=== PATIENT | male | born 1955 | race Caucasian/White ===

== ENCOUNTER → 2023-10-03 13:51 | Outpatient (CLI) | payer OTHER, SELFPAY ==
--- NOTE | 2023-10-03 13:53 | DI.MRI.S_ITS ---
PROCEDURE: MR ANGIO HEAD WO CON INDICATIONS: Cerebral infarction, unspecified TECHNIQUE: Noncontrast axial 3-D [id number] MR angiogram, with 3-dimensional maximum intensity projection (MIP) reformats of the internal carotid arteries and posterior circulation then performed. COMPARISON: [facility], , MR ANGIO NECK W CON, 10/03/2023, 14:53. FINDINGS: Image quality: Excellent. Anterior circulation: Intracranial internal carotid arteries demonstrate normal size and intraluminal flow signal. The flow within the paired anterior cerebral arteries is normal and symmetric. The flow within the middle cerebral arteries is normal and symmetric. The anterior communicating artery is seen. No stenoses, occlusions, or aneurysms. Posterior circulation: Visualized portions of the vertebral arteries demonstrate normal caliber, and join to form a normal appearing basilar artery. The flow within the posterior cerebral arteries is normal and symmetric. No stenoses, occlusions, or aneurysms. IMPRESSION: No significant intracranial arterial abnormality is seen. Dictated by: Nicholas Ramsey M.D. on 10/03/2023 at 15:05 Approved by: Nicholas Ramsey M.D. on 10/03/2023 at 15:06
--- NOTE | 2023-10-03 13:54 | DI.MRI.S_ITS ---
PROCEDURE: MR ANGIO NECK W CON INDICATIONS: Cerebral infarction, unspecified TECHNIQUE: Axial and sagittal TruFISP through the neck. Coronal dynamic MRA after the administration of contrast in the arterial and venous phases, with rotating 3-dimensional maximum intensity projection (MIP) reformats constructed from subtraction images. COMPARISON: [facility], , MR ANGIO HEAD WO CON, 10/03/2023, 14:53. FINDINGS: Image quality: Excellent. Carotid system: Great vessels demonstrate a conventional anatomy as they arise from the aortic arch. The origins of the common carotid arteries appear normal. The calibers and courses of the common carotid arteries are likewise normal. The carotid bifurcations appear normal bilaterally. The internal carotid arteries are widely patent up to the [place]. Posterior circulation: The origins of the vertebral arteries are unremarkable. The more superior portions of the vertebral arteries demonstrate normal course and caliber. Vertebral arteries join to form a normal appearing basilar artery. Miscellaneous: Subclavian arteries are patent throughout. Pre-contrast images through the neck demonstrate no soft tissue abnormalities. IMPRESSION: Within the arteries of the neck, no hemodynamically significant stenosis can be seen. Any quantitative measurements of stenosis were performed using NASCET criteria. Dictated by: Nicholas Ramsey M.D. on 10/03/2023 at 15:04 Approved by: Nicholas Ramsey M.D. on 10/03/2023 at 15:05
--- NOTE | 2023-10-03 14:18 | DI.ECHO.S_ITS ---
[facility]+ [facility] +---------+ : : [address] : : : : [id number] : : : : Phone: [phone]+ Echocardiogram Report + + :Name: GAGANDEEP GAMBINO Study Date: 10/03/2023 Height: 70 in : :[facility] ReadingLocation: Weight: 180 lb : : Gender: Male BSA: 2.0 m2 : :: 1955 Age: 68 yrs BP: 127/82 mmHg: :Reason For Study: CEREBRAL INFARCTION : :Ordering Physician: TAMIA, : :BRUNA Performed By: Pedro Frank : :Referring: BRUNA CANTRELL : + + Interpretation Summary Normal left ventricle size with ejection fraction 60-65%. Moderate aortic valve sclerosis. Injection of contrast documented an interatrial shunt. Procedure: A two-dimensional transthoracic echocardiogram with color flow and Doppler was performed. A saline contrast injection was performed to assess for cardiac shunting. The study quality was technically adequate. There is no prior echocardiogram noted for this patient. The patient was in normal sinus rhythm during the exam. Left Ventricle: The left ventricle is normal in size and wall thickness. The ejection fraction is estimated to be 60-65%. There are no focal wall motion abnormalities. Right Ventricle: The right ventricle is normal in size and function. Atria: The left atrial size is normal. The right atrium is normal in size. Injection of contrast documented an interatrial shunt. Mitral Valve: The mitral valve is normal in structure and function. There is no mitral valve stenosis. There is trace mitral regurgitation. Aortic Valve: The aortic valve is trileaflet. There is moderate aortic valve sclerosis. There is no aortic valve stenosis. There is no aortic regurgitation. Tricuspid Valve: The tricuspid valve is normal. There is no tricuspid stenosis. No tricuspid regurgitation. Pulmonary artery pressures cannot be estimated because of the lack of a measurable TR jet velocity. Pulmonic Valve: The pulmonic valve is normal in structure and function. There is no pulmonic valvular stenosis. There is no pulmonic valvular regurgitation. Great Vessels: The aortic root is mildly dilated. The dimensions of the ascending aorta are normal. The inferior vena cava appeared normal. Pericardium/ Pleura There is no pericardial effusion. There is no pleural effusion. MMode/2D Measurements & Calculations LVIDd: 4.4 cm LVOT diam: 2.3 cm LVIDs: 3.1 cm Ao root diam: 4.1 cm FS: 29.1 % asc Aorta Diam: 3.4 cm IVSd: 1.2 cm LVPWd: 0.95 cm LV moore. diameter/BSA (cm/m^2): 2.2 LV sys. diameter/BSA (cm/m^2): 1.6 LA A2 area: 19.3 cm2 RA long axis: 4.7 cm LA A4 area: 16.3 cm2 RA area: 14.8 cm2 LA length (vol): 5.2 cm RA vol: 39.7 ml LA vol: 51.5 ml RA : 19.9 ml/m2 LA vol index: 25.8 ml/m2 IVC diam: 2.0 cm RVD1 (basal): 3.7 cm RVD2 (mid): 3.3 cm TAPSE: 1.4 cm Doppler Measurements & Calculations Ao V2 max: 216.7 cm/sec LVOT Max Jaren: 123.7 cm/sec Ao V2 mean: 151.4 cm/sec LV V1 max P.1 mmHg Ao max P.8 mmHg LV V1 VTI: 28.1 cm Ao mean P.5 mmHg STEVE(I,D): 2.6 cm2 Ao V2 VTI: 42.9 cm STEVE(V,D): 2.3 cm2 sev ratio: 0.65 STEVE indexed to BSA (cm^2/m^2): 1.3 MV E max jaren: 55.5 cm/sec PA pr(Accel): 36.2 mmHg MV A max jaren: 86.5 cm/sec MV E/A: 0.64 Med Peak E' Jaren: 6.9 cm/sec E/E' med: 8.0 Lat Peak E' Jaren: 8.4 cm/sec E/E' lat: 6.6 E/e' average: 7.3 MV dec time: 0.10 sec SV(LVOT): 112.7 ml Electronically signed by: Evangelina Bennett on Reading Physician:10/03/2023 04:44 PM
== END ==
LOC: ECHO 13:51
PROVIDERS: Family Provider Internal Medicine; PCP Internal Medicine; Referring Provider Internal Medicine; Visit Provider Internal Medicine
DX: I63.9 Cerebral infarction, unspecified (principal); I35.8 Other nonrheumatic aortic valve disorders; I77.810 Thoracic aortic ectasia
CPT/HCPCS: 70544; 70548; 93306; A9579

== ENCOUNTER → 2023-10-23 13:33 | Outpatient (CLI) | payer OTHER, SELFPAY ==
--- NOTE | 2023-10-23 13:36 | DI.MRI.S_ITS ---
PROCEDURE: MR HEAD/BRAIN WO CON INDICATIONS: cva TECHNIQUE: Non-contrast axial T1 spin echo, axial T2 fast spin echo, sagittal and axial FLAIR, coronal T2 fast spin echo, axial gradient echo, axial diffusion and ADC through the brain. COMPARISON: None. FINDINGS: Image quality: Excellent. CSF spaces: Ventricles appear symmetric in size and shape. Basal cisterns are patent. No extra-axial fluid collections. Brain: No intracranial bleeds or mass effects. There is cerebral volume loss for age. There are periventricular and deep white matter chronic small vessel ischemic changes. Brainstem appears normal. Diffusion-weighted images show no acute infarct. Small chronic right brooks radiata lacunar infarct with surrounding gliosis. Normal intravascular flow voids are present. Skull and face: Calvarial bone marrow is normal in signal. Orbits are normal. Sinuses: Mild mucosal thickening in the maxillary sinuses. The mastoids are clear. IMPRESSION: No acute intracranial disease process. No acute infarction or intracranial hemorrhage. Chronic right brooks radiata lacunar infarct. Mild, diffuse cerebral volume loss. Mild periventricular and subcortical white matter chronic microvascular ischemic change. Dictated by: Darlin Garcia MD, PhD on 10/24/2023 at 9:16 Approved by: Darlin Garcia MD, PhD on 10/24/2023 at 9:19
== END ==
LOC: MRI 13:34
PROVIDERS: Family Provider Internal Medicine; PCP Internal Medicine; Referring Provider Internal Medicine; Visit Provider Internal Medicine
DX: I63.9 Cerebral infarction, unspecified (principal)
CPT/HCPCS: 70551

== ENCOUNTER → 2024-01-24 11:04 | Outpatient (RCR) | payer MEDICARE, OTHER, SELFPAY ==
--- NOTE | 2022-11-22 17:42 | ST.OP.ACL ---
Visit Care Team Role Provider Type Genaro Cunha MD Attending Provider Non-Staff Family Provider Primary Care Provider Referring Provider Specialty: Internal Medicine Address: [address] [place], [place] [address], [place], [address] Email: Adult Cognitive Linguistic Evaluation [employer] Adult Cognitive Linguistic Eval Start: 11/22/22 16:19 Freq: Status: Active Protocol: Document 11/22/22 17:08 CG (Rec: 11/22/22 17:42 CG [id number]) Adult Cognitive Linguistic Evaluation Session Time Visit Start Time 15:30 Visit Stop Time 16:20 Total Visit Minutes 50 Visit Information Visit Number 1 Plan of Care Dates 11/22/22-01/21/23 Referral Referring Provider Genaro Cunha Reason for Referral CVA Setting Assessment Location Outpatient Care Visit Type Note Type Initial evaluation Next Note Type Next Note Type Treatment Note Patient Information Identification Type Name Patient History Pt is a 67-year-old man who is here for a speech/cognitive- linguistic evaluation after being hospitalized in September for a stroke. At the time of the event, he woke up in the morning with right sided facial droop and dysarthria, as well as vision changes. It was determined at the hospital that he likely had a left-sided lacunar infarct. During his inpatient stay, he continued to present with mild dysarthria and a left gaze palsy. At the time of evaluation, he reports no difficulty with speech. His reports that he seems to have delayed processing time and mumble more than before the stroke. The pt states his memory is okay and doesn't interfere with everyday life, though his has concerns. Language(s) Spoken in the Home [place]al[place] Education Level High school diploma Hearing Hearing Level Normal Vision Vision Status Impaired Comments Glasses, possible hemineglect Previous Therapy Previous Speech-Language Therapy No Subjective Patient Report Pt arrived on time with his , Kesha, who was present throughout the evaluation. He did not report any pain. He was alert, oriented, cooperative, and avle to follow directions throughout the assessment. Mental Status Alert,Responsive,Cooperative Assessment Oral Motor Examination Completed Yes Results Tongue: Deviates right. Mild weakness on L lingual press. Moderate decreased agility/ motor planning deficits observed during alternating tongue lateralization exercise . Lips: Moderately reduced labial coordination observed during smile-pucker exercise. Jaw: WFL Phonation time was mildly reduced during sustained /a/ task. Diadakokinetic task revealed mildly slowed DDK speed. Informal Assessment Receptive Language Normal No: Difficulty with multi-step commands Receptive Language Impairment(s) Comprehension of complex yes/ no questions,Following 2-step commands Expressive Language Normal Yes Pragmatic Language Normal Yes Speech Normal No Speech Impairment(s) Slow speech rate,Poor breath support Cognition Normal No Cognitive Impairment(s) Short-term memory,Problem solving Formal Assessment Standardized Test/Screener Type [facility] Mental Status ([facility]) Administration Complete Results (Indicative of mild dementia). Deficits included difficulty with working memory for mathematical calculation, deficits in short term memory for story task, and deficits in multi-step directions for clock drawing. Findings/Results Language Function Within functional limits Cognitive Function Mildly impaired Findings Pt presents with mild cognitive deficits as indicated above in results of the SLUMS. Pt states he is not able to remember to take his medications, though he never took any regular medications before his stroke. Pt's indicated that she has to remind him to take medications and to keep appointments, and that his memory has worsened since his stroke. Additionally, she states he has difficulty finding things within his visual field, though pt states this is only because he didn' t bring his glasses to the evaluation. Pt was observed to have difficulty finding words on his phone. Speech/language appear within functional limits. Though some mild symptoms of dysarthria are still present, they are not noticeable nor do they interfere with everyday speech per pt's report. Pt reported mild word-finding difficulties, though not enough to interfere with everyday life. Cognitive Communication Deficits Self-awareness of Cognitive- Situational awareness ( Communication Deficits recognition of problem in context;in real time) Concomitant Factors Concomitant Factors Visual field neglect Impact on Functioning Activity Limits/Particip.Rest. Mild: Interpersonal Interactions Community Safety Risks Mild: Being Left Alone at Home Mod: Managing Medication Traveling Alone in Community Prognosis Prognosis Fair Based on Other (comment) Comment Decreased insight Plan of Care Speech-Language Treatment Yes Frequency 1x/week Duration 4 weeks Patient/Caregiver Education Described results of evaluation,Patient expressed understanding of evaluation, Patient expressed agreement with goals and treatment plans ,Patient requires further education/training,Family/ caregivers require further education/training Short Term Goals 1. Pt and caregiver will benefit from education regarding the use of external aids and compensatory strategies for memory. 2. Pt will demonstrate understanding of and accurate execution of home exercise program for mild dysarthria. 3. Pt will complete visual scanning tasks with 70% accuracy independently. Punchboard Filling Machine Operator Goals 1. Pt will demonstrate use of compensatory strategies for memory as evidenced by recalling a list of 5 after a delay of 2 minutes. 2. Pt will demonstrate use of compensatory strategies for cognition by completing visual scanning tasks with 85% accuracy independently with the use of trained strategies. Discharge Recommendations Home
--- NOTE | 2022-11-22 17:42 | ST.OPPOC ---
Physical, Occupational & Speech Therapy At [facility] Visit Care Team Role Provider Type Genaro Cunha MD Attending Provider Non-Staff Family Provider Primary Care Provider Referring Provider Address: [address], [place], [address] Speech Pathology Plan of Care Plan of Care Dates 11/22/22-01/21/23 Referring Provider Genaro Cunha Patient History Pt is a 67-year-old man who is here for a speech /cognitive-linguistic evaluation after being hospitalized in September for a stroke. At the time of the event, he woke up in the morning with right sided facial droop and dysarthria, as well as vision changes. It was determined at the hospital that he likely had a left-sided lacunar infarct. During his inpatient stay, he continued to present with mild dysarthria and a left gaze palsy. At the time of evaluation, he reports no difficulty with speech. His reports that he seems to have delayed processing time and mumble more than before the stroke. The pt states his memory is okay and doesn't interfere with everyday life, though his has concerns. Self-awareness of Cognitive- Situational awareness (re Communication Deficits Interpersonal Interactions Mild Community Mild Being Left Alone at Home Mild Managing Medication Moderate Traveling Alone in Community Moderate Short Term Goals 1. Pt and caregiver will benefit from education regarding the use of external aids and compensatory strategies for memory. 2. Pt will demonstrate understanding of and accurate execution of home exercise program for mild dysarthria. 3. Pt will complete visual scanning tasks with 70% accuracy independently. Detention Goals 1. Pt will demonstrate use of compensatory strategies for memory as evidenced by recalling a list of 5 after a delay of 2 minutes. 2. Pt will demonstrate use of compensatory strategies for cognition by completing visual scanning tasks with 85% accuracy independently with the use of trained strategies. Comment: Electronically Signed by: SHANNA Wong 11/22/22 0814 If you are in agreement with this Plan of Care, please return a signed and dated copy. I have reviewed this Plan of Care and certify that the skilled therapy services above are required to meet the patient?s needs. Physician Signature Date Printed Name and Credentials Clinical Instructor Signature Printed Name and Credentials
--- NOTE | 2024-01-23 11:52 | ST.OPDS ---
Visit Care Team Role Provider Type Genaro Cunha MD Attending Provider Non-Staff Family Provider Primary Care Provider Referring Provider Address: [facility] [address], [place], [address] [employer] Discharge Summary [employer] Discharge Summary Start: 01/23/24 11:50 Freq: Status: Active Protocol: Document 01/23/24 11:50 CG (Rec: 01/23/24 11:52 CG [id number]) Speech Pathology Treatment Note Visit Information Plan of Care Dates 11/22/22-01/21/23 Setting Treatment Setting Outpatient Care Next Note Type Next Note Type NA General Information Patient History Pt is a 67-year-old man who is here for a speech/cognitive- linguistic evaluation after being hospitalized in September for a stroke. At the time of the event, he woke up in the morning with right sided facial droop and dysarthria, as well as vision changes. It was determined at the hospital that he likely had a left-sided lacunar infarct. During his inpatient stay, he continued to present with mild dysarthria and a left gaze palsy. At the time of evaluation, he reports no difficulty with speech. His reports that he seems to have delayed processing time and mumble more than before the stroke. The pt states his memory is okay and doesn't interfere with everyday life, though his has concerns. Objective Short Term Goals 1. Pt and caregiver will benefit from education regarding the use of external aids and compensatory strategies for memory. 2. Pt will demonstrate understanding of and accurate execution of home exercise program for mild dysarthria. 3. Pt will complete visual scanning tasks with 70% accuracy independently. Longterm Goals 1. Pt will demonstrate use of compensatory strategies for memory as evidenced by recalling a list of 5 after a delay of 2 minutes. 2. Pt will demonstrate use of compensatory strategies for cognition by completing visual scanning tasks with 85% accuracy independently with the use of trained strategies. Treatment Activities No treatment was initiated after initial evaluation due to pt not following up past initial eval. Discharging at this time due to inactivity of account. Assessment Assessment of Improvement Pt was not seen beyond initial evaluation. Discharge acct due to inactivity.
== END | disposition home or self-care (01) ==
LOC: SP 11-22 15:24
PROVIDERS: Absent Provider Internal Medicine; Family Provider Internal Medicine; PCP Internal Medicine; Referring Provider Internal Medicine; Visit Provider Internal Medicine
DX: I63.9 Cerebral infarction, unspecified (principal)
CPT/HCPCS: 92523

== ENCOUNTER → 2024-05-17 09:08 | Outpatient (CLI) | payer MEDICARE, SELFPAY ==
--- NOTE | 2024-05-17 09:09 | DI.MRI.S_ITS ---
PROCEDURE: MR HEAD/BRAIN WO CON INDICATIONS: CVA TECHNIQUE: Non-contrast axial T1 spin echo, axial T2 fast spin echo, sagittal and axial FLAIR, coronal T2 fast spin echo, axial gradient echo, axial diffusion and ADC through the brain. COMPARISON: [facility], , MR HEAD/BRAIN WO CON, 10/23/2023, 14:03. FINDINGS: Image quality: Excellent. CSF spaces: Ventricles appear symmetric in size and shape. Basal cisterns are patent. No extra-axial fluid collections. Brain: No intracranial bleeds or mass effects. There is a small chronic right mid brooks radiata infarct with moderate surrounding ill-defined FLAIR signal elevation, as before. There is cerebral volume loss for age. There are periventricular and deep white matter chronic small vessel ischemic changes. Brainstem appears normal. Diffusion-weighted images show no acute infarct. No chronic ischemic insults. Normal intravascular flow voids are present. Skull and face: Calvarial bone marrow is normal in signal. Orbits are normal. Sinuses: Complete opacification of the left maxillary sinus. Near complete opacification of the left frontal sinus. Moderate left and mild right ethmoid sinus mucosal thickening. Mastoids are clear. IMPRESSION: 1. No acute process. No recent infarct. 2. Volume loss and small vessel ischemic disease. 3. Small chronic right brooks radiata infarct. 4. Sinus disease. Dictated by: Bruno Franks M.D. on 05/17/2024 at 10:42 Approved by: Bruno Franks M.D. on 05/17/2024 at 10:48
== END ==
LOC: MRI 09:08
PROVIDERS: Family Provider Internal Medicine; PCP Internal Medicine; Referring Provider Internal Medicine; Visit Provider Internal Medicine
DX: I63.9 Cerebral infarction, unspecified (principal); J32.8 Other chronic sinusitis
CPT/HCPCS: 70551

== ENCOUNTER → 2025-01-15 07:49 | Outpatient (CLI) | payer MEDICARE, SELFPAY ==
--- NOTE | 2025-01-15 07:50 | DI.ECHO.S_ITS ---
[facility] : : [address] : [facility] : : [place], : : [place] [address] : : Phone: [phone] Echocardiogram Report + + :Name: GAGANDEEP GAMBINO Study Date: 01/15/2025 Height: 70 in : :[facility] ReadingLocation: Weight: 190 lb : : Gender: Male BSA: 2.0 m2 : :: 1955 Age: 69 yrs BP: 124/81 mmHg: :Reason For Study: HYPERTENSION, MURMUR : :Ordering Physician: JEANA, : :LORENA Performed By: Pedro Frank : :Referring: LORENA HILLS : + + Interpretation Summary Normal sinus rhythm. Normal LV size and wall thickness; EF is 50-55%. Stage I diastolic dysfunction. Normal chamber sizes. Aortic valve is a trileaflet structure with moderately reduced leaflet excursion and mild associated aortic stenosis. Peak velocity is 2 m/sec and mean gradient is 10 mm Hg. Mildly dilated aortic root measuring 4.1 cm in diameter. Compared to prior echo 10/03/2023 no significant changes have occurred. Procedure: A two-dimensional transthoracic echocardiogram with color flow and Doppler was performed. The study quality was technically good. Comparison is made with the echocardiogram of 10/03/2023. The patient was in normal sinus rhythm during the exam. Left Ventricle: The left ventricle is normal in size. There is normal left ventricular wall thickness. There is no ventricular septal defect visualized. The ejection fraction is estimated to be 50-55%. There are no focal wall motion abnormalities. Diastolic parameters suggest a relaxation abnormality of the left ventricle, consistent with probable normal filling pressures. Right Ventricle: The right ventricle is mildly dilated. Right ventricular systolic function is mildly reduced. Atria: The left atrial size is normal. Right atrial size is normal. The interatrial septum is not well visualized. HX POSITIVE BUBBLE STUDY. Mitral Valve: The mitral valve leaflets appear normal. There is no evidence of stenosis, fluttering, or prolapse. There is trace mitral regurgitation. Aortic Valve: The aortic valve is trileaflet. There is moderate aortic valve sclerosis. No aortic regurgitation is present. Tricuspid Valve: The tricuspid valve leaflets are thin and pliable. There is a trace or physiologic amount of tricuspid regurgitation. Pulmonic Valve: The pulmonic valve is normal in structure and function. There is no pulmonic valvular regurgitation. Great Vessels: The aortic root is mildly dilated. The dimensions of the ascending aorta are normal. The pulmonary artery is normal size. The inferior vena cava was not visualized. Pericardium/ Pleura There is no pericardial effusion. There is no pleural effusion. MMode/2D Measurements & Calculations LVIDd: 4.1 cm AoV Openin.4 cm LVIDs: 3.3 cm LVOT diam: 2.3 cm IVSd: 1.0 cm Ao root diam: 4.1 cm LVPWd: 1.0 cm asc Aorta Diam: 3.8 cm LV moore. diameter/BSA (cm/m^2): 2.0 LV sys. diameter/BSA (cm/m^2): 1.6 FS: 19.4 % EPSS: 0.83 cm LA A2 area: 21.9 cm2 RA long axis: 5.4 cm LA A4 area: 20.2 cm2 RA area: 17.3 cm2 LA length (vol): 5.5 cm RA vol: 46.9 ml LA vol: 67.8 ml RA : 23.0 ml/m2 LA vol index: 33.2 ml/m2 RVD1 (basal): 4.2 cm RVD2 (mid): 3.5 cm TAPSE: 2.0 cm Doppler Measurements & Calculations Ao V2 max: 208.9 cm/sec LVOT Max Jaren: 122.2 cm/sec Ao V2 mean: 152.5 cm/sec LV V1 max P.0 mmHg Ao V2 VTI: 48.2 cm LV V1 VTI: 26.3 cm Ao max P.5 mmHg Ao mean P.3 mmHg STEVE(I,D): 2.2 cm2 MV E max jaren: 47.3 cm/sec STEVE(V,D): 2.3 cm2 MV A max jaren: 63.3 cm/sec STEVE indexed to BSA (cm^2/m^2): 1.1 MV E/A: 0.75 sev ratio: 0.55 Med Peak E' Jaren: 6.7 cm/sec E/E' med: 7.1 Lat Peak E' Jaren: 7.4 cm/sec E/E' lat: 6.4 E/e' average: 6.7 MV dec time: 0.26 sec PA V2 max: 93.0 cm/sec PA V2 mean: 60.7 cm/sec PA mean P.7 mmHg PA pr(Accel): 39.6 mmHg SV(LVOT): 104.8 ml Electronically signed by: Jennifer Khoury M.D. on Reading Physician:01/16/2025 12:32 AM
--- NOTE | 2025-01-15 07:50 | DI.CT.S_ITS ---
PROCEDURE: CT LUNG LOW DOSE SCREENING INDICATIONS: tobacco use TECHNIQUE: Noncontrast 2.0-2.5 mm thick sections acquired from the pulmonary apices to the posterior costophrenic angles. 7 mm thick axial MIP, and 5 mm coronal and sagittal reformats were then acquired. For radiation dose reduction, the following was used: automated exposure control, adjustment of mA and/or kV according to patient size. COMPARISON: None. FINDINGS: Image quality: Diagnostic. Lower Neck: No enlarged lymph nodes. Thyroid: No thyroid nodules which require sonographic follow up, per consensus guidelines. Axillae: No enlarged lymph nodes. Chest Wall: Unremarkable. Bones: Unremarkable. Lungs and Pleura: No pneumothorax or pleural effusions. Several subcentimeter patchy areas of ground-glass density in the mid to upper region of the right lower lobe posteriorly. Heart: Heart size is normal. No pericardial effusion. Thoracic Vessels: Ascending aorta measures 4.15 cm. measures 4.15 cm. Mediastinum and Desire: No enlarged lymph nodes. Esophagus: No wall thickening. No hiatal hernia. Upper Abdomen: Visualized upper abdomen solid organs and bowel loops appear normal. IMPRESSION: 1. Several patchy areas of ground-glass density in the right upper lobe posteriorly, likely inflammatory. If there is any active symptomatology, short-term follow-up chest examinations may be obtained. 2. 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 LUNG-RADS 2; continued annual screening, if eligible. Clinically Significant Non-pulmonary Findings: None. Dictated by: Diego Rossi M.D. on 01/15/2025 at 13:44 Approved by: Diego Rossi M.D. on 01/15/2025 at 13:49
== END ==
PROVIDERS: Family Provider Internal Medicine; PCP Student in an Organized Health Care Education/Training Program; Referring Provider Student in an Organized Health Care Education/Training Program; Visit Provider Student in an Organized Health Care Education/Training Program
DX: I10 Essential (primary) hypertension (principal); I35.8 Other nonrheumatic aortic valve disorders; R01.1 Cardiac murmur, unspecified; F17.210 Nicotine dependence, cigarettes, uncomplicated; I77.89 Other specified disorders of arteries and arterioles; I77.810 Thoracic aortic ectasia
CPT/HCPCS: 71271; 93306